=== PATIENT | female | born 1965 | race Two or more races ===

== ENCOUNTER 2016-07-02 11:36 | Emergency (ER) | payer OTHER ==
[2016-07-02 11:59] VITALS: BP 156/70; PULSE 91; RESP 16; TEMP 97.5; O2SAT 97
--- NOTE | 2016-07-02 12:54 | DX ---
Left Ankle, Three Views History: Pain, post trauma. Fall yesterday. Findings: No fracture, effusion, or dislocation is identified. Impression: Nothing acute identified.
--- NOTE | 2016-07-02 13:13 | UCPHY ---
H & P Time Seen by Provider: 07/02/16 13:09 Patient Type: Established HPI/ROS: HPI: 51-year-old female presents to urgent care with chief concern left foot and ankle pain that onset at 9:00 p.m. last night when she slipped down the stairs, straining the left foot and ankle. Reports associated pain, swelling. Has used ibuprofen with some improvement. Denies other injury including head injury, neck injury, back injury, upper extremity or lower extremity injury. No weakness, tingling of the lower extremity. No previous injury of the left foot or ankle. Review of Systems: Constitutional: no fever Eyes: No visual changes Neck: No midline tenderness Cardiac: No chest pain GI: no nausea, vomiting, abdominal pain Musculoskeletal: See HPI Back: No midline thoracic or lumbar tenderness Skin: no rashes, abrasions, lacerations Neuro: no numbness, tingling, or weakness. no decreased sensation. Smoking Status: Never smoked Physical Exam: Vital signs stable, reviewed by me General: Awake, alert, calm, cooperative. No acute distress. Head: Normalocephalic. Atraumatic. EENT: PERRLA. EOMI. Neck: Supple, nontender. No midline tenderness, full ROM. Respiratory: Breathing unlabored. CV: Chest nontender, atraumatic. Distal pulses 2+. Brisk cap refill all extremities. GI: Deferred Neuro: Alert. Oriented x 3. Sensation intact all extremities however patient reports numbness to the 4th and 5th toes of the left foot. Skin: Skin warm, dry, intact. Extremities: No discomfort to palpation of the left hip, knee, leg. Full ROM. There is swelling, ecchymosis left lateral and anterior foot and ankle. No deformity, erythema, abrasions, or lacerations noted. There is tenderness to palpation of the lateral ankle, lateral foot, anterior foot . Achilles intact without tenderness. Negative Mehta test. No discomfort noted to the medial or posterior malleolus. Negative calcaneal squeeze test. Positive midfoot torsion. No tenderness base of the 5th metatarsal. No syndesmosis. No pain to the proximal tibia or fibula. Toes without discomfort and with full ROM. There is limited ROM to ankle and foot . Strength is 5+ . Constitutional: Initial Vital Signs Temperature (C) 36.4 C 07/02/16 11:52 Heart Rate 91 07/02/16 11:52 Respiratory Rate 16 07/02/16 11:52 Blood Pressure 156/70 H 07/02/16 11:52 O2 Sat (%) 97 07/02/16 11:52 O2 Delivery Mode Room Air Allergies/Adverse Reactions: No Known Allergies Allergy (Verified 07/02/16 11:51) Home Medications: Medication Instructions Recorded NK [No Known Home Meds] 07/02/16 Medical Decision Making - Diagnostics Imaging: Left Ankle, Three Views History: Pain, post trauma. Fall yesterday. Findings: No fracture, effusion, or dislocation is identified. Impression: Nothing acute identified. Dictated By: Maxi Bajwa MD Left Foot , 3 views History: Pain post trauma, fall yesterday Findings: No fracture or dislocation is identified. Impression: Nothing acute identified. Dictated By: Maxi Bajwa MD ED Course/Re-evaluation: Placed in Usama wrap, walking boot-neurovascular status intact after application, instructed in use of crutches, given x-ray on disc and orthopedic referral for follow-up Differential Diagnosis: Fracture, sprain, contusion, ligament or tendon injury Departure - Departure Clinical Impression: Ankle sprain Qualifiers: Encounter type: initial encounter Involved ligament of ankle: other ligament Laterality: left Qualifier Code: (S93.492A) Sprain of other ligament of left ankle, initial encounter Foot sprain Qualifiers: Encounter type: initial encounter Laterality: left Qualifier Code: (S93.602A) Unspecified sprain of left foot, initial encounter Instructions: Foot Sprain (ED), Ankle Sprain (ED) Additional Instructions: Plan: You may use 600 mg of ibuprofen every 6 hours for fever, inflammation, or pain. Always take ibuprofen with food and stay well hydrated while taking. Do not exceed the maximum allowable dose in a 24 hour period which is 2400 mg. You may use 1000 mg of Tylenol every 8 hours. This may be staggered with the ibuprofen. Do not exceed the maximum dose in a 24 hour period which is 3 GM or 3000 mg. Use crutches for weight-bearing as tolerated-if it hurts do not do it Wear boot and Usama wrap while up and about ice every 1-2 hours for 20 minutes for the the next 2-3 days Keep elevated while at rest Follow up with orthopedist by Saturday or Saturday should symptoms not have improved significantly Referrals: Guanakito Desir MD [Primary Care Provider] - As per Instructions Tammie Trevino MD [Medical Doctor] - As per Instructions - PQRS PQRS Measurement: Not applicable
== END 2016-07-02 13:39 | disposition home or self-care (01) ==
LOC: CED 11:36
PROC: 2W3RXYZ Immobilization of Left Lower Leg using Other Device (ICD-10-PCS; principal; 2016-07-02)
DX: S93.492A Sprain of other ligament of left ankle, initial encounter (principal); W10.8XXA Fall (on) (from) other stairs and steps, initial encounter
CPT/HCPCS: 73610-PO; 73630-PO; G0463-PO; L4386